=== PATIENT | female | born 1955 | race American Indian/Alaskan Native ===

== ENCOUNTER 2019-02-03 22:30 | Observation (INO) | payer MEDICARE ==
[2019-02-03 23:33] LABS: Basophils % (Auto) 0.6 % (0.0-1.8); Eosinophils # (Auto) 0.1 K/mm3 (0.0-0.4); Eosinophils % (Auto) 1.8 % (0.0-4.3); Hematocrit 40.2 % (30.3-42.9); Hemoglobin 13.9 gm/dl (10.1-14.3); Lymphocytes # (Auto) 1.8 K/mm3 (1.2-5.4); Mean Corpuscular HGB Conc 35 % (30-34); Mean Corpuscular Volume 89 fl (79-97); Monocytes # (Auto) 0.5 K/mm3 (0.0-0.8); Monocytes % (Auto) 8.8 % (0.0-7.3); Platelet Count 170 K/mm3 (140-440); Red Blood Count 4.54 M/mm3 (3.65-5.03); Red Cell Distribution Width 13.7 % (13.2-15.2)
[2019-02-03 23:54] LABS: BUN/Creatinine Ratio 24; Blood Urea Nitrogen 12 mg/dL (7-17); Calcium 10.5 mg/dL (8.4-10.2); Hemolysis Index 7
[2019-02-03 23:59] LABS: INR 0.93 (0.87-1.13)
[2019-02-04] LABS: Partial Thromboplastin Time 29.8 Sec. (24.2-36.6)
[2019-02-04 01:19] LABS: Bilirubin,Urine NEG (Negative); Blood,Urine NEG (Negative); Color,Urine Yellow (Yellow); Mucus,Urine FEW /HPF; Protein,Urine <15 mg/dL mg/dL (Negative); Urobilinogen,Urine < 2.0 mg/dL (<2.0)
--- NOTE | 2019-02-04 01:25 | Emergency Department Report ---
ED General Adult HPI - General Chief complaint: Altered Mental Status Stated complaint: DISORIENTED Time Seen by Provider: 02/04/19 00:09 Source: patient, RN notes reviewed, old records reviewed Mode of arrival: Ambulatory Limitations: No Limitations - History of Present Illness Initial comments: Primary care Dr.: Dr. Lili Nagel Neurology: Dr. Diggs at [place], Dr Jimi Hollingsworth here This is a 63-year-old female. The patient has a history of multiple sclerosis, hypertension, high cholesterol The patient is accompanied by her niece, Mrs. Shayy Brown; [phone]. History is obtained from the patient's niece. Reportedly, the patient is typically alert, oriented functional, and able to complete activities of daily living without difficulty. As per the patient's niece, patient experienced abrupt change in mental status 48-72 hours ago. She is now altered, and "not acting like her normal self." As per the niece, there is no headache, neck pain, chest pain, abdominal pain, shortness of breath, fevers or chills. The patient recently had her Norvasc dose decreased. Medications include Trileptal, donezipiel, duloxetine, toviaz, cyproheptadine. However, the patient's niece states that these medications have not been adjusted recently. In the emergency room, the patient is awake, alert, follows some but not all commands, however, she is unable to answer open-ended questions are closed and questions, describe exacerbating or relieving factors, or the qualitative nature of her symptoms. The history is entirely obtained from the patient's niece. -: Sudden, days(s) Severity scale (0 -10): 0 Consistency: constant Improves with: none Worsens with: none - Related Data Home Medications Medication Instructions Recorded Confirmed Last Taken Atorvastatin (Nf) [Lipitor] 10 mg PO QHS 07/17/13 02/04/19 Unknown Carvedilol [Coreg] 25 mg PO BID 07/17/13 02/04/19 Unknown LORazepam [Ativan] 1 mg PO TID PRN 07/17/13 02/04/19 Unknown OXcarbazepine [Trileptal] 150 mg PO BID 07/17/13 02/04/19 Unknown Omeprazole [PriLOSEC] 20 mg PO BID 07/17/13 02/04/19 Unknown levETIRAcetam [Keppra TAB] 1,000 mg PO BID 07/17/13 02/04/19 Unknown Aricept 10 mg PO QHS 02/04/19 02/04/19 Unknown Calcium 600-Vit D3 400 Tablet 600 mg PO QDAY 02/04/19 02/04/19 Unknown Cymbalta 30 mg PO QDAY 02/04/19 02/04/19 Unknown Cyproheptadine 4 mg PO QDAY 02/04/19 02/04/19 Unknown Ferrous Sulfate 325 mg PO BID 02/04/19 02/04/19 Unknown Ibuprofen 800 mg PO BID 02/04/19 02/04/19 Unknown Lisinopril 10 mg PO QDAY 02/04/19 02/04/19 Unknown OXcarbazepine 150 mg PO BID 02/04/19 02/04/19 Unknown Pantoprazole 40 mg PO QDAY 02/04/19 02/04/19 Unknown Potassium Chloride 20 meq PO QDAY 02/04/19 02/04/19 Unknown Toviaz ER 8 mg PO QDAY 02/04/19 02/04/19 Unknown Vitamin D (Nf) 50,000 unit PO QDAY 02/04/19 02/04/19 Unknown amLODIPine 5 mg PO QDAY 02/04/19 02/04/19 Unknown hydrALAZINE 50 mg PO BID 02/04/19 02/04/19 Unknown Previous Rx's Medication Instructions Recorded Last Taken Type Pregabalin [Lyrica] 150 mg PO TID #90 capsule 07/23/13 Unknown Rx oxyCODONE /ACETAMINOPHEN [Percocet 1 tab PO Q6HR PRN #14 tablet 09/22/13 Unknown Rx 5/325 mg] Allergies Allergy/AdvReac Type Severity Reaction Status Date / Time clonidine Allergy Swelling Verified 06/09/13 16:21 ED Review of Systems ROS: Stated complaint: DISORIENTED Other details as noted in HPI Constitutional: malaise Eyes: denies: eye discharge ENT: denies: epistaxis Respiratory: denies: cough Cardiovascular: denies: chest pain Gastrointestinal: denies: nausea, vomiting Genitourinary: denies: frequency Musculoskeletal: denies: back pain Neurological: confusion ED Past Medical Hx - Past Medical History Hx Hypertension: Yes Hx Congestive Heart Failure: No Hx Diabetes: No Hx Seizures: Yes Hx Asthma: No Hx COPD: No Additional medical history: MS - Surgical History Additional Surgical History: 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 Bladder surgery - Social History Smoking Status: Never Smoker - Medications Home Medications: Home Medications Medication Instructions Recorded Confirmed Last Taken Type Atorvastatin (Nf) [Lipitor] 10 mg PO QHS 07/17/13 02/04/19 Unknown History Carvedilol [Coreg] 25 mg PO BID 07/17/13 02/04/19 Unknown History LORazepam [Ativan] 1 mg PO TID PRN 07/17/13 02/04/19 Unknown History OXcarbazepine [Trileptal] 150 mg PO BID 07/17/13 02/04/19 Unknown History Omeprazole [PriLOSEC] 20 mg PO BID 07/17/13 02/04/19 Unknown History levETIRAcetam [Keppra TAB] 1,000 mg PO BID 07/17/13 02/04/19 Unknown History Pregabalin [Lyrica] 150 mg PO TID #90 capsule 07/23/13 02/04/19 Unknown Rx oxyCODONE /ACETAMINOPHEN [Percocet 1 tab PO Q6HR PRN #14 tablet 09/22/13 02/04/19 Unknown Rx 5/325 mg] Aricept 10 mg PO QHS 02/04/19 02/04/19 Unknown History Calcium 600-Vit D3 400 Tablet 600 mg PO QDAY 02/04/19 02/04/19 Unknown History Cymbalta 30 mg PO QDAY 02/04/19 02/04/19 Unknown History Cyproheptadine 4 mg PO QDAY 02/04/19 02/04/19 Unknown History Ferrous Sulfate 325 mg PO BID 02/04/19 02/04/19 Unknown History Ibuprofen 800 mg PO BID 02/04/19 02/04/19 Unknown History Lisinopril 10 mg PO QDAY 02/04/19 02/04/19 Unknown History OXcarbazepine 150 mg PO BID 02/04/19 02/04/19 Unknown History Pantoprazole 40 mg PO QDAY 02/04/19 02/04/19 Unknown History Potassium Chloride 20 meq PO QDAY 02/04/19 02/04/19 Unknown History Toviaz ER 8 mg PO QDAY 02/04/19 02/04/19 Unknown History Vitamin D (Nf) 50,000 unit PO QDAY 02/04/19 02/04/19 Unknown History amLODIPine 5 mg PO QDAY 02/04/19 02/04/19 Unknown History hydrALAZINE 50 mg PO BID 02/04/19 02/04/19 Unknown History ED Physical Exam - General Limitations: Altered Mental Status General appearance: alert, in no apparent distress - Head Head exam: Present: atraumatic, normocephalic - Eye Eye exam: Present: normal appearance, EOMI. Absent: nystagmus - ENT ENT exam: Present: normal exam, normal orophraynx, mucous membranes moist, normal external ear exam - Neck Neck exam: Present: normal inspection, full ROM. Absent: tenderness, meningismus - Respiratory Respiratory exam: Present: normal lung sounds bilaterally. Absent: respiratory distress - Cardiovascular Cardiovascular Exam: Present: regular rate, normal rhythm, normal heart sounds. Absent: bradycardia, tachycardia, irregular rhythm, systolic murmur, diastolic murmur, rubs, gallop - GI/Abdominal GI/Abdominal exam: Present: soft. Absent: distended, tenderness, guarding, rebound, rigid, pulsatile mass - Extremities Exam Extremities exam: Present: normal inspection, full ROM, other (2+ pulses noted in the bilateral upper, lower extremities. Compartments soft. No long bony tenderness. The pelvis is stable.). Absent: pedal edema, joint swelling, calf tenderness - Back Exam Back exam: Present: normal inspection, full ROM. Absent: tenderness, CVA tenderness (R), CVA tenderness (L), paraspinal tenderness, vertebral tenderness - Neurological Exam Neurological exam: Present: altered, other (the patient is awake. The patient moves 4 extremities spontaneously. There is no facial droop. Patient blinks in response to threat. The patient will not speak. Detailed neurologic examination is not possible secondary to patient's not cooperating with the neurologic examination) - Psychiatric Psychiatric exam: Present: normal affect, normal mood - Skin Skin exam: Present: warm, dry, intact, normal color. Absent: rash ED Course Vital Signs 02/03/19 02/04/19 02/04/19 22:40 01:20 01:36 Temperature 98.1 F 98.3 F Pulse Rate 67 60 Respiratory 18 14 Rate Blood Pressure 167/90 Blood Pressure 154/86 [Right] O2 Sat by Pulse 100 100 Oximetry ED Medical Decision Making - Lab Data Result diagrams: 02/03/19 23:14 02/05/19 05:11 Vital Signs 02/04/19 01:20 Pulse Rate 60 Respiratory 14 Rate Blood Pressure 154/86 [Right] Lab Results 02/03/19 02/03/19 02/03/19 Range/Units 23:14 23:14 23:14 WBC 5.5 (4.5-11.0) K/mm3 RBC 4.54 (3.65-5.03) M/mm3 Hgb 13.9 (10.1-14.3) gm/dl Hct 40.2 (30.3-42.9) % MCV 89 (79-97) fl MCH 31 (28-32) pg MCHC 35 H (30-34) % RDW 13.7 (13.2-15.2) % Plt Count 170 (140-440) K/mm3 Lymph % (Auto) 33.0 (13.4-35.0) % [place] % (Auto) 8.8 H (0.0-7.3) % Eos % (Auto) 1.8 (0.0-4.3) % Baso % (Auto) 0.6 (0.0-1.8) % Lymph # 1.8 (1.2-5.4) K/mm3 [place] # 0.5 (0.0-0.8) K/mm3 Eos # 0.1 (0.0-0.4) K/mm3 Baso # 0.0 (0.0-0.1) K/mm3 Seg Neutrophils % 55.8 (40.0-70.0) % Seg Neutrophils # 3.1 (1.8-7.7) K/mm3 PT 13.0 (12.2-14.9) Sec. INR 0.93 (0.87-1.13) APTT 29.8 (24.2-36.6) Sec. Thrombin Time (15.1-19.6) Sec. Sodium 144 (137-145) mmol/L Potassium 3.5 L (3.6-5.0) mmol/L Chloride 103.4 (98-107) mmol/L Carbon Dioxide 29 (22-30) mmol/L Anion Gap 15 mmol/L BUN 12 (7-17) mg/dL Creatinine 0.5 L (0.7-1.2) mg/dL Estimated GFR > 60 ml/min BUN/Creatinine Ratio 24 % Glucose 98 (65-100) mg/dL Calcium 10.5 H (8.4-10.2) mg/dL Magnesium (1.7-2.3) mg/dL Total Creatine Kinase (30-135) units/L Troponin T < 0.010 (0.00-0.029) ng/mL TSH (0.270-4.200) mlU/mL Free T4 (0.76-1.46) ng/dL Urine Color (Yellow) Urine Turbidity (Clear) Urine pH (5.0-7.0) Ur Specific [place] (1.003-1.030) Urine Protein (Negative) mg/dL Urine Glucose (UA) (Negative) mg/dL Urine Ketones (Negative) mg/dL Urine Blood (Negative) Urine Nitrite (Negative) Urine Bilirubin (Negative) Urine Urobilinogen (<2.0) mg/dL Ur Leukocyte Esterase (Negative) Urine WBC (Auto) (0.0-6.0) /HPF Urine RBC (Auto) (0.0-6.0) /HPF Urine Mucus /HPF Salicylates (2.8-20.0) mg/dL Acetaminophen (10.0-30.0) ug/mL 02/03/19 02/04/19 02/04/19 Range/Units 23:14 00:20 00:20 WBC (4.5-11.0) K/mm3 RBC (3.65-5.03) M/mm3 Hgb (10.1-14.3) gm/dl Hct (30.3-42.9) % MCV (79-97) fl MCH (28-32) pg MCHC (30-34) % RDW (13.2-15.2) % Plt Count (140-440) K/mm3 Lymph % (Auto) (13.4-35.0) % [place] % (Auto) (0.0-7.3) % Eos % (Auto) (0.0-4.3) % Baso % (Auto) (0.0-1.8) % Lymph # (1.2-5.4) K/mm3 [place] # (0.0-0.8) K/mm3 Eos # (0.0-0.4) K/mm3 Baso # (0.0-0.1) K/mm3 Seg Neutrophils % (40.0-70.0) % Seg Neutrophils # (1.8-7.7) K/mm3 PT (12.2-14.9) Sec. INR (0.87-1.13) APTT (24.2-36.6) Sec. Thrombin Time 15.4 (15.1-19.6) Sec. Sodium (137-145) mmol/L Potassium (3.6-5.0) mmol/L Chloride (98-107) mmol/L Carbon Dioxide (22-30) mmol/L Anion Gap mmol/L BUN (7-17) mg/dL Creatinine (0.7-1.2) mg/dL Estimated GFR ml/min BUN/Creatinine Ratio % Glucose (65-100) mg/dL Calcium (8.4-10.2) mg/dL Magnesium 2.00 (1.7-2.3) mg/dL Total Creatine Kinase 159 H (30-135) units/L Troponin T (0.00-0.029) ng/mL TSH (0.270-4.200) mlU/mL Free T4 0.91 (0.76-1.46) ng/dL Urine Color (Yellow) Urine Turbidity (Clear) Urine pH (5.0-7.0) Ur Specific [place] (1.003-1.030) Urine Protein (Negative) mg/dL Urine Glucose (UA) (Negative) mg/dL Urine Ketones (Negative) mg/dL Urine Blood (Negative) Urine Nitrite (Negative) Urine Bilirubin (Negative) Urine Urobilinogen (<2.0) mg/dL Ur Leukocyte Esterase (Negative) Urine WBC (Auto) (0.0-6.0) /HPF Urine RBC (Auto) (0.0-6.0) /HPF Urine Mucus /HPF Salicylates (2.8-20.0) mg/dL Acetaminophen (10.0-30.0) ug/mL 02/04/19 02/04/19 02/04/19 Range/Units 00:20 00:20 00:20 WBC (4.5-11.0) K/mm3 RBC (3.65-5.03) M/mm3 Hgb (10.1-14.3) gm/dl Hct (30.3-42.9) % MCV (79-97) fl MCH (28-32) pg MCHC (30-34) % RDW (13.2-15.2) % Plt Count (140-440) K/mm3 Lymph % (Auto) (13.4-35.0) % [place] % (Auto) (0.0-7.3) % Eos % (Auto) (0.0-4.3) % Baso % (Auto) (0.0-1.8) % Lymph # (1.2-5.4) K/mm3 [place] # (0.0-0.8) K/mm3 Eos # (0.0-0.4) K/mm3 Baso # (0.0-0.1) K/mm3 Seg Neutrophils % (40.0-70.0) % Seg Neutrophils # (1.8-7.7) K/mm3 PT (12.2-14.9) Sec. INR (0.87-1.13) APTT (24.2-36.6) Sec. Thrombin Time (15.1-19.6) Sec. Sodium (137-145) mmol/L Potassium (3.6-5.0) mmol/L Chloride (98-107) mmol/L Carbon Dioxide (22-30) mmol/L Anion Gap mmol/L BUN (7-17) mg/dL Creatinine (0.7-1.2) mg/dL Estimated GFR ml/min BUN/Creatinine Ratio % Glucose (65-100) mg/dL Calcium (8.4-10.2) mg/dL Magnesium (1.7-2.3) mg/dL Total Creatine Kinase (30-135) units/L Troponin T (0.00-0.029) ng/mL TSH 2.260 (0.270-4.200) mlU/mL Free T4 (0.76-1.46) ng/dL Urine Color (Yellow) Urine Turbidity (Clear) Urine pH (5.0-7.0) Ur Specific [place] (1.003-1.030) Urine Protein (Negative) mg/dL Urine Glucose (UA) (Negative) mg/dL Urine Ketones (Negative) mg/dL Urine Blood (Negative) Urine Nitrite (Negative) Urine Bilirubin (Negative) Urine Urobilinogen (<2.0) mg/dL Ur Leukocyte Esterase (Negative) Urine WBC (Auto) (0.0-6.0) /HPF Urine RBC (Auto) (0.0-6.0) /HPF Urine Mucus /HPF Salicylates < 0.3 L (2.8-20.0) mg/dL Acetaminophen < 5.0 L (10.0-30.0) ug/mL 02/04/19 Range/Units Unknown WBC (4.5-11.0) K/mm3 RBC (3.65-5.03) M/mm3 Hgb (10.1-14.3) gm/dl Hct (30.3-42.9) % MCV (79-97) fl MCH (28-32) pg MCHC (30-34) % RDW (13.2-15.2) % Plt Count (140-440) K/mm3 Lymph % (Auto) (13.4-35.0) % [place] % (Auto) (0.0-7.3) % Eos % (Auto) (0.0-4.3) % Baso % (Auto) (0.0-1.8) % Lymph # (1.2-5.4) K/mm3 [place] # (0.0-0.8) K/mm3 Eos # (0.0-0.4) K/mm3 Baso # (0.0-0.1) K/mm3 Seg Neutrophils % (40.0-70.0) % Seg Neutrophils # (1.8-7.7) K/mm3 PT (12.2-14.9) Sec. INR (0.87-1.13) APTT (24.2-36.6) Sec. Thrombin Time (15.1-19.6) Sec. Sodium (137-145) mmol/L Potassium (3.6-5.0) mmol/L Chloride (98-107) mmol/L Carbon Dioxide (22-30) mmol/L Anion Gap mmol/L BUN (7-17) mg/dL Creatinine (0.7-1.2) mg/dL Estimated GFR ml/min BUN/Creatinine Ratio % Glucose (65-100) mg/dL Calcium (8.4-10.2) mg/dL Magnesium (1.7-2.3) mg/dL Total Creatine Kinase (30-135) units/L Troponin T (0.00-0.029) ng/mL TSH (0.270-4.200) mlU/mL Free T4 (0.76-1.46) ng/dL Urine Color Yellow (Yellow) Urine Turbidity Clear (Clear) Urine pH 7.0 (5.0-7.0) Ur Specific [place] 1.017 (1.003-1.030) Urine Protein <15 mg/dl (Negative) mg/dL Urine Glucose (UA) Neg (Negative) mg/dL Urine Ketones Neg (Negative) mg/dL Urine Blood Neg (Negative) Urine Nitrite Neg (Negative) Urine Bilirubin Neg (Negative) Urine Urobilinogen < 2.0 (<2.0) mg/dL Ur Leukocyte Esterase Neg (Negative) Urine WBC (Auto) 1.0 (0.0-6.0) /HPF Urine RBC (Auto) 1.0 (0.0-6.0) /HPF Urine Mucus Few /HPF Salicylates (2.8-20.0) mg/dL Acetaminophen (10.0-30.0) ug/mL - EKG Data EKG shows normal: sinus rhythm - EKG Data When compared to previous EKG there are: previous EKG unavailable 02/04/19 01:34 EKG shows a sinus rhythm, 65 bpm, normal axis, QTC within normal limits, nonspecific lateral T wave abnormalities, poor R progression, abnormal EkG, not consistent with ST elevation myocardial infarction. - Radiology Data Radiology results: image reviewed interpreted by me: Noncontrast CT scan of the brain appears to be negative for acute hemorrhage. Noncontrast - Medical Decision Making Differential diagnosis, including but not limited to: Subacute stroke, dementia, multiple sclerosis flare toxic encephalopathy, metabolic encephalopathy, urinary tract infection, atypical presentation of dementia Assessment and plan: 63-year-old female who presents approximately 48 hours with abrupt mental status changes. Her motor exam is nonfocal and she is protecting her airway. The patient is afebrile with reassuring vital signs. The patient is not a TPA candidate as her symptoms began more than 4.5 hours prior to presentation. The patient's history and physical was not suggestive of large vessel occlusion, and having had symptoms for greater than 24 hours would typically preclude the patient from endovascular intervention. Furthermore, her motor exam and history do not suggest a significant large vessel occlusion. The case is discussed with neurology vehicle monitor technician, Dr. Graham, who recommends evaluating the patient for toxic metabolic infectious etiology, withholding sedating medications, and inpatient acquisition of MRI. This is discussed with the patient's niece, who is giving verbal permission for the patient to be admitted. The possibility of the patient becoming delirious or agitated while in the hospital was discussed, and the patient's niece has given verbal permission for chemical and physical sedation/restraint if necessary. The case is presented to the Hospital physician, Dr. Ashley Rodriguez, who has accepted the patient to the medical service. Thus far, screening laboratory studies unremarkable. Urinalysis is not consistent with urinary tract infection. No focal pulmonary findings and not hypoxic, therefore, we do not suspect pneumonia. This may be an atypical presentation of dementia. Dr. Graham at this point I does not recommend empiric steroids. Recommends MRI acquisition first. Critical care attestation.: If time is entered above; I have spent that time in minutes in the direct care of this critically ill patient, excluding procedure time. ED Disposition Clinical Impression: Encephalopathy acute Disposition: DC-[id number] OP ADMIT IP TO THIS HOSP Is pt being admited?: Yes Does the pt Need Aspirin: Yes Condition: Fair
[2019-02-04] MEDS ORDERED: BABY ASPIRIN PO ONE (01:41)
[2019-02-04] MEDS ORDERED: ZOFRAN IV PRN (02:25)
[2019-02-04] MEDS ORDERED: TYLENOL PO PRN (02:25)
[2019-02-04] MEDS ORDERED: SODIUM CHLORIDE FLUSH SYRINGE 10 ML IV PRN (02:25)
[2019-02-04] MEDS ORDERED: NORCO 5/325 PO PRN (02:25)
--- NOTE | 2019-02-04 02:37 | History and Physical Report ---
History of Present Illness Date of examination: 02/04/19 Chief complaint: AMS per patient's niece History of present illness: Patient is a 63-year-old -[place] female with history of multiple sclerosis who was brought to the ED by the niece on account of altered mental status. Patient was a poor historian, so history was obtained from the niece who was at her bedside. She stated that for the past 2 days, her aunt has been acting confused with associated poor mobility and difficulty swallowing. She has history of urinary and fecal incontinence which have also worsened. No rep orted history of headaches, nausea, vomiting, dizziness, syncope or loss of consciousness. No chest pain, shortness of breath, fever or chills. Past History Past Medical History: hypertension, hyperlipidemia, other (multiple sclerosis) Past Surgical History: Other (surgery in the rectum) Social history: smoking (patient is an ex-cigarette smoker. She smoked for 30 years but quit more than 20 years ago. She currently uses marijuana for pain control. No reported history of alcohol or other illicit drug use) Family history: other (significant for hypertension and diabetes per her niece. No known family history of dementia.) Medications and Allergies Allergies Allergy/AdvReac Type Severity Reaction Status Date / Time clonidine Allergy Swelling Verified 06/09/13 16:21 Home Medications Medication Instructions Recorded Confirmed Last Taken Type Atorvastatin (Nf) [Lipitor] 10 mg PO QHS 07/17/13 02/04/19 Unknown History Carvedilol [Coreg] 25 mg PO BID 07/17/13 02/04/19 Unknown History LORazepam [Ativan] 1 mg PO TID PRN 07/17/13 02/04/19 Unknown History OXcarbazepine [Trileptal] 150 mg PO BID 07/17/13 02/04/19 Unknown History Omeprazole [PriLOSEC] 20 mg PO BID 07/17/13 02/04/19 Unknown History levETIRAcetam [Keppra TAB] 1,000 mg PO BID 07/17/13 02/04/19 Unknown History Pregabalin [Lyrica] 150 mg PO TID #90 capsule 07/23/13 02/04/19 Unknown Rx oxyCODONE /ACETAMINOPHEN [Percocet 1 tab PO Q6HR PRN #14 tablet 09/22/13 02/04/19 Unknown Rx 5/325 mg] Aricept 10 mg PO QHS 02/04/19 02/04/19 Unknown History Calcium 600-Vit D3 400 Tablet 600 mg PO QDAY 02/04/19 02/04/19 Unknown History Cymbalta 30 mg PO QDAY 02/04/19 02/04/19 Unknown History Cyproheptadine 4 mg PO QDAY 02/04/19 02/04/19 Unknown History Ferrous Sulfate 325 mg PO BID 02/04/19 02/04/19 Unknown History Ibuprofen 800 mg PO BID 02/04/19 02/04/19 Unknown History Lisinopril 10 mg PO QDAY 02/04/19 02/04/19 Unknown History OXcarbazepine 150 mg PO BID 02/04/19 02/04/19 Unknown History Pantoprazole 40 mg PO QDAY 02/04/19 02/04/19 Unknown History Potassium Chloride 20 meq PO QDAY 02/04/19 02/04/19 Unknown History Toviaz ER 8 mg PO QDAY 02/04/19 02/04/19 Unknown History Vitamin D (Nf) 50,000 unit PO QDAY 02/04/19 02/04/19 Unknown History amLODIPine 5 mg PO QDAY 02/04/19 02/04/19 Unknown History hydrALAZINE 50 mg PO BID 02/04/19 02/04/19 Unknown History Active Meds: Active Medications Acetaminophen (Tylenol) 650 mg PO Q4H PRN PRN Reason: Pain MILD(1-3)/Fever >100.5/MENJIVAR Acetaminophen/Hydrocodone Bitart ([place] 5/325) 1 each PO Q6H PRN PRN Reason: Pain, Moderate (4-6) Enoxaparin Sodium (Lovenox) 40 mg SUB-Q QDAY JUAN MANUEL Ondansetron HCl (Zofran) 4 mg IV Q8H PRN PRN Reason: Nausea And Vomiting Sodium Chloride (Sodium Chloride Flush Syringe 10 Ml) 10 ml IV BID JUAN MANUEL Sodium Chloride (Sodium Chloride Flush Syringe 10 Ml) 10 ml IV PRN PRN PRN Reason: LINE FLUSH Review of Systems ROS unobtainable: due to mental status (AMS) Exam - Constitutional Vitals: Temp Pulse Resp BP Pulse Ox 98.3 F 60 14 154/86 100 02/04/19 01:36 02/04/19 01:20 02/04/19 01:20 02/04/19 01:20 02/04/19 01:36 General appearance: Present: no acute distress - EENT Eyes: Present: PERRL, EOM intact ENT: hearing intact, clear oral mucosa - Neck Neck: Present: supple, normal ROM - Respiratory Respiratory effort: normal Respiratory: bilateral: CTA - Cardiovascular Rhythm: regular Heart Sounds: Present: S1 & S2 - Extremities Extremities: pulses symmetrical, No edema - Abdominal General gastrointestinal: Present: soft, non-tender, non-distended, normal bowel sounds Female genitourinary: Present: deferred - Integumentary Integumentary: Present: clear, warm, dry - Musculoskeletal Musculoskeletal: other (bilateral lower extremity weakness) - Psychiatric Psychiatric: cooperative - Neurologic Neurologic: moves all extremities Results - Labs CBC & Chem 7: 02/03/19 23:14 02/03/19 23:14 Labs: Laboratory Last Values WBC 5.5 K/mm3 (4.5-11.0) 02/03/19 23:14 RBC 4.54 M/mm3 (3.65-5.03) 02/03/19 23:14 Hgb 13.9 gm/dl (10.1-14.3) 02/03/19 23:14 Hct 40.2 % (30.3-42.9) 02/03/19 23:14 MCV 89 fl (79-97) 02/03/19 23:14 MCH 31 pg (28-32) 02/03/19 23:14 MCHC 35 % (30-34) H 02/03/19 23:14 RDW 13.7 % (13.2-15.2) 02/03/19 23:14 Plt Count 170 K/mm3 (140-440) 02/03/19 23:14 Lymph % (Auto) 33.0 % (13.4-35.0) 02/03/19 23:14 [place] % (Auto) 8.8 % (0.0-7.3) H 02/03/19 23:14 Eos % (Auto) 1.8 % (0.0-4.3) 02/03/19 23:14 Baso % (Auto) 0.6 % (0.0-1.8) 02/03/19 23:14 Lymph # 1.8 K/mm3 (1.2-5.4) 02/03/19 23:14 [place] # 0.5 K/mm3 (0.0-0.8) 02/03/19 23:14 Eos # 0.1 K/mm3 (0.0-0.4) 02/03/19 23:14 Baso # 0.0 K/mm3 (0.0-0.1) 02/03/19 23:14 Seg Neutrophils % 55.8 % (40.0-70.0) 02/03/19 23:14 Seg Neutrophils # 3.1 K/mm3 (1.8-7.7) 02/03/19 23:14 PT 13.0 Sec. (12.2-14.9) 02/03/19 23:14 INR 0.93 (0.87-1.13) 02/03/19 23:14 APTT 29.8 Sec. (24.2-36.6) 02/03/19 23:14 15.4 Sec. (15.1-19.6) 02/03/19 23:14 Sodium 144 mmol/L (137-145) 02/03/19 23:14 Potassium 3.5 mmol/L (3.6-5.0) L 02/03/19 23:14 Chloride 103.4 mmol/L (98-107) 02/03/19 23:14 Carbon Dioxide 29 mmol/L (22-30) 02/03/19 23:14 15 mmol/L 02/03/19 23:14 BUN 12 mg/dL (7-17) 02/03/19 23:14 0.5 mg/dL (0.7-1.2) L 02/03/19 23:14 Estimated GFR > 60 ml/min 02/03/19 23:14 24 % 02/03/19 23:14 Glucose 98 mg/dL (65-100) 02/03/19 23:14 Calcium 10.5 mg/dL (8.4-10.2) H 02/03/19 23:14 Magnesium 2.00 mg/dL (1.7-2.3) 02/04/19 00:20 159 units/L (30-135) H 02/04/19 00:20 < 0.010 ng/mL (0.00-0.029) 05/30/19 23:14 TSH 2.260 mlU/mL (0.270-4.200) 02/04/19 00:20 Free T4 0.91 ng/dL (0.76-1.46) 02/04/19 00:20 Yellow (Yellow) 02/04/19 Unknown Clear (Clear) 02/04/19 Unknown 7.0 (5.0-7.0) 02/04/19 Unknown Ur Specific [place] 1.017 (1.003-1.030) 02/04/19 Unknown <15 mg/dl mg/dL (Negative) 02/04/19 Unknown Neg mg/dL (Negative) 02/04/19 Unknown Neg mg/dL (Negative) 02/04/19 Unknown Neg (Negative) 02/04/19 Unknown Neg (Negative) 02/04/19 Unknown Neg (Negative) 02/04/19 Unknown < 2.0 mg/dL (<2.0) 02/04/19 Unknown Ur Leukocyte Esterase Neg (Negative) 02/04/19 Unknown 1.0 /HPF (0.0-6.0) 02/04/19 Unknown 1.0 /HPF (0.0-6.0) 02/04/19 Unknown Few /HPF 02/04/19 Unknown Salicylates < 0.3 mg/dL (2.8-20.0) L 02/04/19 00:20 Acetaminophen < 5.0 ug/mL (10.0-30.0) L 02/04/19 00:20 Assessment and Plan Assessment and plan: Acute metabolic encephalopathy -Probably due to worsening dementia. However, patient's niece denies prior diagnosis of dementia even though she takes Aricept per her medication list. -Head CT scan negative for acute findings -On neuro checks -Neurology consulted in the ED and MRI brain recommended History of multiple sclerosis with possible acute flare -MRI brain pending -Home medications resumed -Neurology consulted Uncontrolled hypertension -On antihypertensives, adjust as needed Hypokalemia -On repletion, will monitor K level Mild hypercalcemia -On IV fluid, will monitor calcium level Possible dysphagia -Speech therapy consulted Hyperlipidemia -Continue statin GERD -Continue Protonix DVT prophylaxis with Lovenox Disposition: Patient will be placed in observation status pending further evaluation Time spent: 38 minutes
[2019-02-04] MEDS ORDERED: K-DUR PO ONE (02:40)
[2019-02-04] MEDS ORDERED: ATIVAN PO PRN (02:43)
[2019-02-04 02:53] LABS: Alanine Aminotransferase 16 units/L (7-56); Albumin 3.7 g/dL (3.9-5)
[2019-02-04] MEDS ORDERED: NACL 0.45% 1000 ML 1,000 ML IV SCH (03:00)
[2019-02-04 03:07] LABS: Bilirubin,Direct < 0.2 mg/dL (0-0.2)
[2019-02-04 04:14] LABS: Amphetamine Screen,Urine PRESUMPTIVE NEGATIVE; Benzodiazepines Screen,Urine PRESUMPTIVE NEGATIVE; Cocaine Screen,Urine PRESUMPTIVE NEGATIVE; Methadone Screen,Urine PRESUMPTIVE NEGATIVE; Opiate Screen,Urine PRESUMPTIVE NEGATIVE
[2019-02-04 04:36] LABS: Cannabinoid Screen,Urine PRESUMPTIVE POSITIVE
[2019-02-04] MEDS: LYRICA PO SCH ×3 (09:00→23:48)
[2019-02-04] MEDS ORDERED: TOVIAZ 8 MG PO SCH (10:00)
[2019-02-04] MEDS ORDERED: CALCIUM VIT D3 PO SCH (10:00)
[2019-02-04] MEDS: OYSCO D 500 MG-200 UNIT PO SCH (10:56)
[2019-02-04] MEDS: CYMBALTA PO SCH (10:57)
[2019-02-04] MEDS: KEPPRA PO SCH ×2 (10:57→23:49)
[2019-02-04] MEDS: IBUPROFEN PO SCH ×2 (10:57→23:48)
[2019-02-04] MEDS: K-DUR PO SCH (10:57)
[2019-02-04] MEDS: APRESOLINE PO SCH ×2 (10:57→23:47)
[2019-02-04] MEDS: NORVASC PO SCH (10:57)
[2019-02-04] MEDS: SODIUM CHLORIDE FLUSH SYRINGE 10 ML IV SCH ×2 (10:58→23:49)
[2019-02-04] MEDS: PROTONIX PO SCH (10:58)
[2019-02-04] MEDS: FEOSOL PO SCH ×2 (10:58→23:47)
[2019-02-04] MEDS: BABY ASPIRIN PO SCH (11:02)
[2019-02-04] MEDS: LOVENOX SUB-Q SCH (11:02)
[2019-02-04] MEDS: TRILEPTAL PO SCH ×2 (11:42→23:48)
[2019-02-04] MEDS: PERIACTIN PO SCH (11:43)
--- NOTE | 2019-02-04 12:32 | Progress Note ---
Subjective Date of service: 02/04/19 Interval history: thanks for the consult I know patient very well as I see her on outpatient basis... 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5 L Calcium 10.5 H Total Creatine Kinase 159 H Total Protein Albumin Salicylates Acetaminophen 02/04/19 02/04/19 02/04/19 00:20 00:20 01:58 MCHC [place] % (Auto) Potassium Creatinine Calcium Total Creatine Kinase Total Protein 6.2 L Albumin 3.7 L Salicylates < 0.3 L Acetaminophen < 5.0 L
--- NOTE | 2019-02-04 12:33 | Progress Note ---
Subjective Date of service: 02/04/19 Interval history: my read on the CT of head bilateral old deep white matter strokes plus severe white matter lesions of MS Objective - Vital Sign Vital Signs - 12hr 02/04/19 02/04/19 02/04/19 01:20 01:36 04:15 Temperature 98.3 F Pulse Rate 60 68 Respiratory 14 17 Rate Blood Pressure 154/86 141/84 [Right] O2 Sat by Pulse 100 98 Oximetry - Laboratory Findings CBC and BMP: 02/03/19 23:14 02/03/19 23:14 Abnormal Lab Findings: Abnormal Labs 02/03/19 02/03/19 02/04/19 23:14 23:14 00:20 MCHC 35 H [place] % (Auto) 8.8 H Potassium 3.5 L Creatinine 0.5 L Calcium 10.5 H Total Creatine Kinase 159 H Total Protein Albumin Salicylates Acetaminophen 02/04/19 02/04/19 02/04/19 00:20 00:20 01:58 MCHC [place] % (Auto) Potassium Creatinine Calcium Total Creatine Kinase Total Protein 6.2 L Albumin 3.7 L Salicylates < 0.3 L Acetaminophen < 5.0 L
--- NOTE | 2019-02-04 16:25 | Magnetic Resonance Report ---
PROCEDURE: MR BRAIN WO CON TECHNIQUE: Magnetic resonance imaging of the brain was performed without the IV injection of paramag netic contrast. HISTORY: H/O MS WITH AMS COMPARISONS: CT head February 03, 2019. FINDINGS: T2/FLAIR hyperintensities in the periventricular and subcortical white matter are nonspecific. Differ ential diagnosis includes migraines, microvascular ischemic disease, demyelinating process, encephali tis/encephalopathy, and trauma. Chronic encephalomalacia with gliosis in the left basal ganglia and right periventricular white matte r. Midline structures are unremarkable. There is no tonsillar ectopy. Age appropriate vázquez-white matter differentiation is noted. There is no hydrocephalus. There is no mass. There is no hemorrhage. There is no midline shift. There is no restricted diffusion to suggest acute ischemia. The CP angles are grossly noted. Major flow voids are present. Paranasal sinuses are unremarkable. Globes are intact. Calvarial signal characteristics are grossly unremarkable. Extracranial soft tissues are intact. IMPRESSION: * No acute intracranial findings. * Chronic ischemic disease. This document is electronically signed by Vladimir Bartlett MD., Feb 04 2019 05:23:26 PM ET
--- NOTE | 2019-02-04 17:55 | Event Note ---
Date: 02/04/19 Patient seen and reevaluated Multiple sclerosis exacerbation More alert and oriented We will get physical therapy evaluation
[2019-02-04] MEDS ORDERED: ARICEPT PO SCH (22:00)
[2019-02-05 06:00] LABS: BUN/Creatinine Ratio 18; Blood Urea Nitrogen 11 mg/dL (7-17); Calcium 9.6 mg/dL (8.4-10.2); Hemolysis Index 7
[2019-02-05] MEDS: OYSCO D 500 MG-200 UNIT PO SCH (10:54)
[2019-02-05] MEDS: KEPPRA PO SCH (10:54)
[2019-02-05] MEDS: APRESOLINE PO SCH (10:54)
[2019-02-05] MEDS: K-DUR PO SCH (10:55)
[2019-02-05] MEDS: IBUPROFEN PO SCH (10:55)
[2019-02-05] MEDS: PROTONIX PO SCH (10:55)
[2019-02-05] MEDS: FEOSOL PO SCH (10:55)
[2019-02-05] MEDS: CYMBALTA PO SCH (10:56)
[2019-02-05] MEDS: TRILEPTAL PO SCH (10:56)
[2019-02-05] MEDS: NORVASC PO SCH (10:56)
[2019-02-05] MEDS: BABY ASPIRIN PO SCH (10:56)
[2019-02-05] MEDS: LOVENOX SUB-Q SCH (10:56)
[2019-02-05] MEDS: LYRICA PO SCH ×2 (10:56→15:00)
[2019-02-05] MEDS: SODIUM CHLORIDE FLUSH SYRINGE 10 ML IV SCH (10:57)
[2019-02-05] MEDS: PERIACTIN PO SCH (10:57)
[2019-02-05] MEDS ORDERED: AFLURIA QUAD 2018-2019 SYRINGE IM ONE (12:00)
[2019-02-05 12:36] VITALS: BP 176/90
--- NOTE | 2019-02-05 13:27 | Discharge Summary ---
Providers - Providers Date of Admission: 02/04/19 03:22 Date of discharge: 02/05/19 Attending physician: REGINA BOONE 02/04/19 01:22 Consult to Physician [CONS] Urgent Comment: Consulting Provider: JORDYN CORBETT Physician Instructions: Reason For Exam: ams 02/04/19 01:28 Consult to Physician [CONS] Urgent Comment: Consulting Provider: ABRAN WARREN Physician Instructions: Reason For Exam: ams 02/04/19 02:31 Speech Therapy Evaluation and Treat [CONS] Routine Reason For Exam: SWALLOW EVAL 02/05/19 12:03 Physical Therapy Evaluation and Treat [CONS] Routine Comment: Reason For Exam: debility Mode of Transport?: Wheelchair Hospitalization Condition: Fair Hospital course: Acute metabolic encephalopathy -Probably due to worsening dementia. However, patient's niece denies prior diagnosis of dementia even though she takes Aricept per her medication list. -Head CT scan negative for acute findings -On neuro checks -Confusion resolved Back to baseline MRI-- no acute changes Possible seizure and postictal state History of multiple sclerosis with possible acute flare -MRI- no acute changes -Home medications resumed -Neurology consulted No new acute changes on the MRI Seizure disorder Possible postictal --- recovered completely Uncontrolled hypertension -On antihypertensives, adjust as needed Hypokalemia -Corrected Mild hypercalcemia -Corrected with IV fluids Possible dysphagia Able to eat Hyperlipidemia -Continue statin GERD -Continue Protonix Disposition: DC-01 TO HOME OR SELFCARE Core Measure Documentation - Palliative Care Palliative Care/ Comfort Measures: Not Applicable - Core Measures Any of the following diagnoses?: none Exam - Constitutional Vitals: Temp Pulse Resp BP Pulse Ox 97.3 F L 87 18 176/90 98 02/05/19 12:06 02/05/19 12:05 02/05/19 12:06 02/05/19 12:06 02/05/19 12:05 General appearance: Present: no acute distress, well-nourished - EENT Eyes: Present: PERRL ENT: hearing intact, clear oral mucosa - Neck Neck: Present: supple, normal ROM - Respiratory Respiratory effort: normal Respiratory: bilateral: CTA - Cardiovascular Heart rate: 78 Rhythm: regular Heart Sounds: Present: S1 & S2. Absent: rub, click - Extremities Extremities: no ischemia, pulses symmetrical, No edema Peripheral Pulses: within normal limits - Abdominal General gastrointestinal: Present: soft, non-tender, non-distended, normal bowel sounds Female genitourinary: Present: normal - Integumentary Integumentary: Present: clear, warm, dry - Musculoskeletal Musculoskeletal: gait normal, strength equal bilaterally - Psychiatric Psychiatric: appropriate mood/affect, intact judgment & insight - Neurologic Neurologic: CNII-XII intact, moves all extremities, gait normal - Allied Health Allied health notes reviewed: nursing, case management Plan Activity: no restrictions Diet: low cholesterol, low salt Follow up with: ZACHARY MENDOZA MD [Staff Physician] - 3-5 Days JORDYN CORBETT MD [Staff Physician] - 7 Days
--- NOTE | 2019-02-05 14:12 | Progress Note ---
Subjective Date of service: 02/05/19 Interval history: went over ther MRI and there are areas of neuronal drop out that are the so called T2 lesions of MS loss of neurons MS related not stroke OK to go home she is on MS modification tjerapy= I can follow up in the office I find no evidence of acute stroke Objective - Vital Sign Vital Signs - 12hr 02/05/19 02/05/19 02/05/19 05:46 05:47 10:00 Temperature 97.5 F L Pulse Rate 63 Respiratory 18 Rate Blood Pressure 153/94 O2 Sat by Pulse 97 99 Oximetry 02/05/19 02/05/19 02/05/19 10:54 12:05 12:06 Temperature 97.3 F L Pulse Rate 63 87 Respiratory 18 Rate Blood Pressure 153/94 176/90 O2 Sat by Pulse 98 Oximetry - Laboratory Findings CBC and BMP: 02/03/19 23:14 02/05/19 05:11 Abnormal Lab Findings: Abnormal Labs 02/03/19 02/03/19 02/04/19 23:14 23:14 00:20 MCHC 35 H [place] % (Auto) 8.8 H Potassium 3.5 L Creatinine 0.5 L Calcium 10.5 H Total Creatine Kinase 159 H Total Protein Albumin Salicylates Acetaminophen 02/04/19 02/04/19 02/04/19 00:20 00:20 01:58 MCHC [place] % (Auto) Potassium Creatinine Calcium Total Creatine Kinase Total Protein 6.2 L Albumin 3.7 L Salicylates < 0.3 L Acetaminophen < 5.0 L 02/05/19 05:11 MCHC [place] % (Auto) Potassium Creatinine 0.6 L Calcium Total Creatine Kinase Total Protein Albumin Salicylates Acetaminophen
--- NOTE | 2019-03-16 04:30 | Consultation ---
HISTORY OF PRESENT ILLNESS: This is a 64-year-old female that is admitted to [facility]. This patient was admitted on 02/04/2019. This patient was evaluated on neurological consultation because of persistent confusion, speech difficulty and altered mental status. The patient was interviewed in combination with a history taken directly from her caregiver who is a EDITOR MANAGING NEWSP[employer]ER. The patient has been totally care dependent, lives with the assistance of a EDITOR MANAGING NEWSPAPER in the area. She has a longstanding history of multiple neurological problems related to advanced multiple sclerosis and she also has a seizure disorder. In the past, the patient has been admitted to this hospital with periods of syncope related to malignant hypertension. 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 This was a benign lesion and was intraluminal and on followup studies no recurrent tumor has been present. The patient has had a 20+ year history of MS, has been managed with various medications including disease modifying agents Rebif, steroids and interferon-based products. Most recently, the patient's condition has remained good, although she does have fatigue, increased weight loss and general symptoms of progression of her MS related to increased weakness from the MS and taking the history from the nurse, it does not appear to be anything unusual what happened recently. I had seen the patient in my office on followup and there is nothing uneventful that was occurring. She apparently began to get very confused, had some speech problems, stuttering, stammering but without any evidence of obvious seizure activity, jerking, twitching or convulsive nature or loss of bowel or bladder continence. She was brought to the hospital when she was seen in the Emergency Room. She was profoundly aphasic, but did not have any limb weakness and there is no active seizure activity noted at that time. ALLERGIES: The patient has no known allergies. SOCIAL HISTORY: She is disabled. She does not smoke, does not drink. FAMILY HISTORY: Unremarkable for any cancers. PHYSICAL EXAMINATION: She at this point semi-alert, easily arouse, but then falls back to sleep. She recognizes me, speaks to me, but then falls quickly back to sleep. Her ocular movements are full. Her fundi are benign. [employer] strength is equal. Motor tone is normal. Cranial nerves 2-12 are intact. I do not find any focal weakness. There are no jerking, twitching or convulsive movements noted. The patient is oriented x 3, follows all simple commands well. No evidence of any asterixis, dystonia or other unusual movements are noted. She is very thin and chronically ill appearing. I do not notice any evidence of any craniocervical trauma. IMPRESSION: 1. Multiple sclerosis. Doubt stroke. 2. Episode of severe confusion, altered mental status with delirium. Based on best estimate, this probably represent a focal seizure with ____ generalization. We would recommend checking blood levels of medication. MRI scan is being pending. The patient is to be further assessed. JOB# [id number] DEJUAN/BENIGNO
== END 2019-02-05 18:00 | disposition home or self-care (01) ==
LOC: ED 22:30 → 3A 02-04 03:22 → INTOOBSV 02-04 03:22
PROVIDERS: ADMIT Internal Medicine; ATTEND Internal Medicine
DX: G35 Multiple sclerosis (principal); G93.41 Metabolic encephalopathy; I10 Essential (primary) hypertension; E87.6 Hypokalemia; E83.52 Hypercalcemia; E78.5 Hyperlipidemia, unspecified; K21.9 Gastro-esophageal reflux disease without esophagitis; G40.909 Epilepsy, unspecified, not intractable, without status epilepticus
CPT/HCPCS: 36415; 70450; 70551; 80048; 80076; 80307; 81001; 82140; 82550; 82962; 83735; 84439; 84443; 84484; 85025; 85610; 85670; 85730; 90686; 92610; 93005; 93010; 96360; 96361; 96372; 99284; A9270; G0378; G0480; J1650; J7030; 80320

== ENCOUNTER 2019-04-25 12:12 | Outpatient (CLI) | payer MEDICARE ==
[2019-04-25 13:11] LABS: Blood Urea Nitrogen 11 mg/dL (7-17)
== END 2019-04-25 12:13 | disposition home or self-care (01) ==
LOC: LAB 12:12
PROVIDERS: ATTEND Psychiatry & Neurology Neurology
DX: B99.9 Unspecified infectious disease (principal); E78.00 Pure hypercholesterolemia, unspecified; I10 Essential (primary) hypertension
CPT/HCPCS: 36415; 80051; 82565; 84520